=== PATIENT | male | born 1930 | race Caucasian/White ===

== ENCOUNTER → 2017-04-21 | Outpatient (CLI) | payer MEDICARE ==
--- NOTE | 2017-04-21 14:48 | PCVCIMAG ---
EXAM: BILATERAL LOWER EXTREMITY ARTERIAL DUPLEX INDICATION: Peripheral Arterial Disease. Leg pain. Nonhealing ulcer left great toe. FINDINGS: Right Leg: Satisfactory arterial waveforms in the common and profunda femoral and superficial femoral artery and popliteal artery without evidence of flow-limiting stenosis. 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 The peroneal artery is patent. 60% stenosis proximal anterior tibial artery. Left Leg: Satisfactory arterial waveforms in the common femoral and profunda femoral artery. Elevated systolic velocity distal superficial femoral artery of 644 cm/s consistent with 95% stenosis. Mild stenosis upper popliteal artery. Occlusion throughout the anterior tibial artery. The peroneal artery is patent as is the posterior tibial artery. IMPRESSION: No right superficial femoral or popliteal artery stenosis. 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 60% stenosis proximal right anterior tibial artery. 95% stenosis distal left superficial femoral artery. Occlusion of the left anterior tibial artery. LOC:[place] [id number]
== END | disposition home or self-care (01) ==
LOC: PCVCIMAG 13:37
PROVIDERS: ATTEND Nuclear Medicine Nuclear Cardiology
DX: I77.1 Stricture of artery (principal); I70.202 Unspecified atherosclerosis of native arteries of extremities, left leg; I70.291 Other atherosclerosis of native arteries of extremities, right leg; L97.529 Non-pressure chronic ulcer of other part of left foot with unspecified severity
CPT/HCPCS: 93925

== ENCOUNTER → 2017-08-07 | Outpatient (CLI) | payer MEDICARE ==
--- NOTE | 2017-08-07 16:39 | PCVCIMAG ---
EXAM: LEFT LOWER EXTREMITY ARTERIAL DUPLEX INDICATION: Peripheral Arterial Disease. Leg pain. FINDINGS: Left Leg: Satisfactory arterial waveforms in the common femoral and profunda femoral artery. No flow-limiting stenosis in the superficial femoral artery or popliteal artery. Previous superficial femoral artery stent remains patent. Occlusion of the distal anterior tibial artery. The peroneal and posterior tibial arteries are patent. IMPRESSION: Previous left superficial femoral artery stent remains patent. Occlusion of the distal left anterior tibial artery. LOC:[id number]
== END | disposition home or self-care (01) ==
LOC: PCVCIMAG 15:07
PROVIDERS: ATTEND Nuclear Medicine Nuclear Cardiology
DX: I73.9 Peripheral vascular disease, unspecified (principal); M79.605 Pain in left leg; I10 Essential (primary) hypertension; E11.9 Type 2 diabetes mellitus without complications; L98.499 Non-pressure chronic ulcer of skin of other sites with unspecified severity; Z79.899 Other long term (current) drug therapy; Z79.84 Long term (current) use of oral hypoglycemic drugs
CPT/HCPCS: 93926; G0463